=== PATIENT | female | born 1960 ===

== ENCOUNTER 2020-11-25 15:50 | Outpatient (CLI) | payer OTHER | END 2020-11-25 20:00 | disposition home or self-care (01) | LOC: INF 15:50 | PROVIDERS: ATTEND Internal Medicine | DX: Z23 Encounter for immunization (principal) | CPT/HCPCS: 96372 ==

== ENCOUNTER 2020-12-15 15:36 | Outpatient (CLI) | payer OTHER | END 2020-12-15 21:37 | disposition home or self-care (01) | LOC: INF 15:36 | PROVIDERS: ATTEND Internal Medicine | DX: Z23 Encounter for immunization (principal) | CPT/HCPCS: 96372 ==